=== PATIENT | male | born 1970 | race Caucasian/White ===

== ENCOUNTER 2022-05-28 19:18 | Emergency (ER) | payer SELFPAY ==
[~2022-05-28] VITALS: Ht 170.2 cm; Wt 79.0 kg
[2022-05-28 20:22] LABS: BASOPHILS % 0.4 % (0.0-2.0); HEMATOCRIT. 38.7 % (42.0-52.0); HEMOGLOBIN. 13.2 g/dL (14.0-18.0); LYMPHOCYTES % 25.5 % (20.0-50.0); MEAN CORPUSCULAR HEMOGLOBIN 32.4 pg (28.0-32.0); MEAN CORPUSCULAR VOLUME 95.1 fL (80.0-94.0); MEAN PLATELET VOLUME 8.7 fl (7.4-10.4); NEUTROPHILS % 62.1 % (40.0-76.0); PLATELET 116 x1000/uL (130-400); RED BLOOD CELL COUNT 4.07 mill/uL (4.7-6.1); RED CELL DISTRIBUTION WIDTH 13.7 % (11.6-14.6)
[2022-05-28 20:30] LABS: CHLORIDE 102 mEq/L (98-107)
[2022-05-28 20:37] LABS: CREATINE KINASE 224 IU/L (39-308); ETHANOL BLOOD < 10 mg/dL
[2022-05-29 04:51] VITALS: BP 103/61
== END 2022-05-29 04:50 | disposition home or self-care (01) ==
LOC: ER 19:18
DX: G93.40 Encephalopathy, unspecified (principal); R41.0 Disorientation, unspecified; R45.1 Restlessness and agitation
CPT/HCPCS: 36415; 80053; 80307; 80320; 80329; 82140; 82550; 82962; 85025; 93005; 99285; G0480